=== PATIENT | female | born 1940 | race African-American/Black ===

== ENCOUNTER 2016-08-02 02:09 | Emergency (ER) | payer MEDICARE, MEDICAID ==
[~2016-08-02] VITALS: Ht 162.6 cm; Wt 98.0 kg
[~2016-08-02 02:09] MED LIST: ADVAIR 250-501 EACH INH; AMLODIPINE BES2.5 MG ORAL; ASPIRIN-LOW81 MG ORAL; CRESTOR10 M1 ORAL; DIOVAN80 MG ORAL; PLAVIX75 MG ORAL; PREDNISONE20 MG ORAL; PROTONIX40 MG ORAL; SPIRIVA18 MCG INH; TRAMADOL HCL50 MG ORAL; TYLENOL EXTRA500 MG ORAL
[2016-08-02 02:10] VITALS: BP 140/88
[2016-08-02] MEDS ORDERED: HYDROmorphone 1mg/ml Carpuject IVP ONE (02:30)
--- NOTE | 2016-08-02 02:40 | Emergency Room Report ---
History of Present Illness General Chief Complaint: Pain Source: Patient Present Illness HPI Is a 75-year-old female with a history of neck and back problem. She presents with chief complaint of left hip pain. No trauma. She said her back been hurting for about a week and pain to her left hip and down her leg. Worse in the last day where she can't walk. She has an appointment with her doctor tomorrow. Pain is 10 out of 10. Certain position made it worse. Denies any fever or chills. Denies any neurological deficit. Pain is shooting stabbing in nature. Her Ultram is not helping. No incontinence of bowel or urine. No numbness. No urinary complaint. Allergies: Coded Allergies: No Known Allergies (Unverified , 02/02/14) Patient History Past Medical History: see triage record, old chart reviewed Past Surgical History: other Pertinent Family History: none Social History: Denies: smoking Last Menstrual Period: n/a Now: No Immunizations: other Reviewed Nursing Documentation: PMH: Agreed, PSxH: Agreed Nursing Documentation-PMH Hx Cardiac Problems: Yes Hx Hypertension: Yes Hx Asthma: Yes Hx COPD: Yes Hx Cancer: No Hx Gastrointestinal Problems: Yes Hx Neurological Problems: Yes Hx Cerebrovascular Accident: Yes - left side weakness Review of Systems Eye: Denies: blurred vision, eye pain ENT: Denies: ear pain, nose congestion, throat swelling Respiratory: Denies: cough, shortness of breath Cardiovascular: Denies: chest pain, palpitations Gastrointestinal: Denies: abdominal pain, diarrhea, nausea, vomiting Musculoskeletal: Reports: back pain, joint pain Skin: Denies: rash Neurological: Denies: headache, numbness Endocrine: Denies: increased thirst, increased urine Hematologic/Lymphatic: Denies: easy bruising All Other Systems: negative except mentioned in HPI Physical Exam Vital Signs Date Time Temp Pulse Resp B/P Pulse Ox O2 Delivery O2 Flow Rate FiO2 08/02/16 02:05 99.0 80 22 140/88 100 Room Air vitals normal Sp02 EP Interpretation: reviewed, normal General Appearance: well appearing, alert, moderate distress - From pain Head: normocephalic, atraumatic Eyes: bilateral eye EOMI, bilateral eye PERRL ENT: hearing grossly normal, normal pharynx Neck: full range of motion, supple, no meningismus Respiratory: chest non-tender, lungs clear, normal breath sounds Cardiovascular #1: regular rate, rhythm, no murmur Gastrointestinal: normal bowel sounds, non tender, no mass, no organomegaly, no bruit, non-distended Musculoskeletal: back normal - Tenderness over the lower lumbar area. No step- off. No deformity., normal range of motion, other - Positive straight leg raise on the left. Neurologic: alert, oriented x3 Psychiatric: mood/affect normal Skin: warm/dry Medical Decision Making Diagnostic Impression: Primary Impression: Low back pain Qualified Codes: M54.42 - Lumbago with sciatica, left side Additional Impression: Obesity (BMI 30-39.9) ER Course Patient presents with lower back pain consistent with sciatica. CT scan showed degenerative changes. No evidence of cauda equina syndrome, spinal epidural abscess or neoplastic process. No evidence of aortic dissection. She felt better after pain medication. I offer her the choice of admission but she prefers to go home she she able to get up and walk now. We'll discharge home. Lab Results Impression labs unremarkable CT/MRI/US Diagnostic Results CT/MRI/US Diagnostic Results : Imaging Test Ordered: CT L-spine Impression Read by radiologist. Degenerative changes. Last Vital Signs Date Time Temp Pulse Resp B/P Pulse Ox O2 Delivery O2 Flow Rate FiO2 08/02/16 02:10 99.0 80 22 140/88 99 Room Air Status: improved Disposition: HOME, SELF-CARE Condition: Stable Scripts Hydrocodone/Acetaminophen 5-325* (HYDROCODONE/ACETAMINOPHEN 5-325*) 1 Each Tablet 1 TAB ORAL Q6H Y for For Pain, #30 TAB 0 Refills Prov: MAREN SMITH M.D. 08/02/16 Referrals: NON PHYSICIAN (PCP) Additional Instructions: Followup with your DrCarlyn in 2-3 days. Return if symptom worsen. MAREN SMITH M.D. Aug 02, 2016 02:40
[2016-08-02 03:05] LABS: BASOPHILS % (AUTO) 1.3 % (0.0-2.0); EOSINOPHILS % (AUTO) 0.9 % (0.0-3.0); LYMPHOCYTES % (AUTO) 11.7 % (20.0-45.0); MEAN CORPUSCULAR HEMOGLOBIN 29.5 PG (27.0-31.0); MEAN CORPUSCULAR HGB CONC 32.3 G/DL (32.0-36.0); MEAN CORPUSCULAR VOLUME 91 FL (80-99); MEAN PLATELET VOLUME 8.2 FL (6.5-10.1); MONOCYTES % (AUTO) 10.5 % (1.0-10.0); NEUTROPHILS % (AUTO) 75.7 % (45.0-75.0); PLATELET COUNT 167 K/UL (150-450); RED BLOOD COUNT 3.99 M/UL (4.20-5.40); RED CELL DISTRIBUTION WIDTH 11.5 % (11.6-14.8); WHITE BLOOD COUNT 10.5 K/UL (4.8-10.8)
[2016-08-02 03:19] LABS: ANION GAP 17 (5-15); CALCIUM 9.2 mg/dL (8.6-10.2); CARBON DIOXIDE 23 mEQ/L (20-30); CHLORIDE 96 mEQ/L (98-107); CREATININE 1.3 mg/dL (0.5-0.9); HEMOLYSIS 50; POTASSIUM 4.2 mEQ/L (3.4-4.9); SODIUM 136 mEQ/L (135-145)
[2016-08-02 04:10] VITALS: BP 145/86
[2016-08-02 04:42] LABS: KETONES,URINE NEGATIVE (NEGATIVE); LEUKOCYTE ESTERASE ,URINE NEGATIVE (NEGATIVE); NITRITE,URINE NEGATIVE (NEGATIVE); PH,URINE 5 (4.5-8.0); PROTEIN,URINE NEGATIVE (NEGATIVE); UROBILINOGEN,URINE 1 MG/DL (0.0-1.0)
[2016-08-02 04:43] LABS: APPEARANCE,URINE CLEAR
[2016-08-02 04:44] LABS: RBC,URINE 0-2 /HPF (0 - 2); SQUAMOUS EPITHELIAL CELL,UR FEW /LPF (NONE/OCC); WBC,URINE 0 /HPF (0 - 2)
[2016-08-02] MEDS ORDERED: Ketorolac 30mg Inj IV ONE (05:00)
[2016-08-02] MEDS ORDERED: HYDROCODON-ACE1 EA15 ORAL (05:21)
[2016-08-02 06:10] VITALS: BP 148/88
[2016-08-02 06:18] VITALS: BP 148/88
--- NOTE | 2016-08-02 09:54 | Diagnostic Imaging Report ---
Indications: PAIN Technique: Spiral acquisitions obtained through the lumbar spine. Multiplanar reconstructions were generated. No IV contrast utilized. Total dose length product 790 mGycm. CTDIvol(s) 23 mGy Comparison: None Findings: No acute fractures. No dislocations. There is slight anterior offset of L4 on L5, probably due to facet degeneration. Otherwise normal bony alignment. There is degenerative disc space narrowing at T12-L1. The remaining disc spaces are preserved. At T12-L1, there is degenerative disc narrowing with vacuum formation. There is circumferential annular bulge, which does not compromise the spinal canal, but disc and osteophytes due to narrowing the right neural foramen moderately. At L1-2, there is minimal circumferential annular bulge which results in slight compromise of the right neural foramen. The spinal canal is preserved. There is facet degeneration at this level. At L2-3, no significant disc bulge or protrusion, spinal stenosis, or neural foraminal stenosis. The facets are preserved. At L3-4, there is circumferential annular bulge. There is unusual thickening and calcification of the ligamenta flava. However, no definite significant spinal canal stenosis is demonstrated. There is mild compromise of the left neural foramen by the bulging disc. At L4-5, there is circumferential annular bulge. There is also unusual calcified thickening of the ligamenta flava, similar to the above level. This, as well as facet hypertrophy, results in mild narrowing of the spinal canal. There is marked bilateral facet degeneration. The alignment abnormality and disc bulge results in moderate narrowing of the right and mild narrowing of the left neural foramina. At L5-S1, there is mild circumferential annular bulge which does not significant compromise the spinal canal. No significant neural foraminal stenosis is evident. There is fairly severe bilateral facet degeneration. There is a 3.5 cm cyst coming off of the upper pole region of the left kidney. There are peripheral parenchymal calcifications in the interpolar region of the left kidney. There is colonic diverticulosis. There is a uterine calcification consistent with calcified fibroid. There is what is presumably a calcified granulomatous lymph node in the left side of the upper pelvis. There are fairly extensive atherosclerotic calcifications Impression: No acute bony trauma Degenerative changes as detailed a level by level basis above Alignment abnormality at L4-5, as described, presumably due to facet degeneration Incidental findings of colonic diverticulosis, left upper pole renal cyst, left renal peripheral parenchymal calcifications, calcified degenerated uterine fibroid, sulci granulomatous lymph node in the left side of the upper pelvis This agrees with the preliminary interpretation provided overnight by [facility]. The CT scanner at [facility] is accredited by the [employer] and the scans are performed using protocols designed to limit radiation exposure to as low as reasonably achievable to attain images of sufficient resolution adequate for diagnostic evaluation.
== END 2016-08-02 06:18 | disposition home or self-care (01) ==
LOC: EDBD 02:09 → EMR 02:25
DX: M51.16 Intervertebral disc disorders with radiculopathy, lumbar region (principal); E66.9 Obesity, unspecified; Z68.37 Body mass index [BMI] 37.0-37.9, adult; I10 Essential (primary) hypertension; J45.909 Unspecified asthma, uncomplicated; J44.9 Chronic obstructive pulmonary disease, unspecified; I69.354 Hemiplegia and hemiparesis following cerebral infarction affecting left non-dominant side; N28.1 Cyst of kidney, acquired; K57.30 Diverticulosis of large intestine without perforation or abscess without bleeding
CPT/HCPCS: 36415; 72131; 80048; 81001; 85025; 96374; 96375; 99284; J1170; J1885; J2405